=== PATIENT | female | born 1990 | race African-American/Black ===

== ENCOUNTER 2022-05-24 15:21 | Emergency (ER) | payer MEDICAID, OTHER ==
[~2022-05-24] VITALS: Ht 167.6 cm; Wt 85.0 kg
[2022-05-24 15:26] VITALS: BP 148/96
[2022-05-24] MEDS ORDERED: ONDANSETRON 4MG ODT PO ONE (16:00)
[2022-05-24 16:28] LABS: BASOPHILS % 1.4 % (0.0-2.0); EOSINOPHILS % 0.5 % (0.0-5.0); HEMOGLOBIN. 10.3 g/dL (12.0-16.0); LYMPHOCYTES % 27.4 % (20.0-50.0); MEAN CORPUSCULAR HEMOGLOBIN 20.5 pg (28.0-32.0); MEAN CORPUSCULAR VOLUME 63.7 fL (81.0-99.0); MEAN PLATELET VOLUME 7.5 fl (7.4-10.4); MONOCYTES % 8.5 % (2.0-8.0); NEUTROPHILS % 62.2 % (40.0-76.0); PLATELET 554 x1000/uL (130-400); RED BLOOD CELL COUNT 5.03 mill/uL (4.2-5.4); RED CELL DISTRIBUTION WIDTH 17.9 % (11.6-14.6)
[2022-05-24 16:42] LABS: CHLORIDE 103 mEq/L (98-107)
[2022-05-24 17:00] LABS: HCG SCREEN NEGATIVE
[2022-05-24 17:02] LABS: PLATELET ESTIMATE INCREASED
[2022-05-24] MEDS ORDERED: ONDANSETRON 4MG ODT PO NR (17:45)
[2022-05-24 17:51] LABS: CLARITY URINE CLEAR (CLEAR); COLOR URINE YELLOW (YELLOW)
[2022-05-24 17:52] LABS: LEUKOCYTE ESTERASE URINE NEGATIVE (NEGATIVE); NITRITE URINE NEGATIVE (NEGATIVE); UROBILINOGEN URINE 0.2 E.U./dL (0.2-1.0)
[2022-05-24 17:53] LABS: SPECIFIC GRAVITY URINE 1.005 (1.005-1.030)
[2022-05-24 17:54] LABS: KETONES URINE TRACE (NEGATIVE); OCCULT BLOOD URINE NEGATIVE (NEGATIVE); PROTEIN URINE TRACE (NEGATIVE)
[2022-05-24] MEDS ORDERED: ONDA4TAB50 MT (18:31)
== END 2022-05-24 18:47 | disposition home or self-care (01) ==
LOC: ER 15:21
DX: R11.2 Nausea with vomiting, unspecified (principal); T50.991A Poisoning by other drugs, medicaments and biological substances, accidental (unintentional), initial encounter; Y92.9 Unspecified place or not applicable; F41.9 Anxiety disorder, unspecified; J45.909 Unspecified asthma, uncomplicated
CPT/HCPCS: 36415; 80053; 81003; 83690; 84703; 85025; 99283; Q0162